=== PATIENT | male | born 1980 | race Hispanic/Latino ===

== ENCOUNTER 2024-01-12 19:59 | Emergency (ER) | payer OTHER ==
[~2024-01-12] VITALS: Ht 180.3 cm; Wt 101.2 kg
[~2024-01-12 19:59] MED LIST: AMLODIPINE BESYL5 MG PO; BENZONATATE100 MG PO; ONDANSETRON ODT4 MG PO; ULTRAM50 MG PO
[2024-01-12 20:41] LABS: BASOPHILS # (AUTO) 0.1 (0.0-0.1); BASOPHILS % 0.6 % (0.0-1.0); EOSINOPHILS # (AUTO) 0.3 (0.0-0.4); EOSINOPHILS % 3.9 % (0.0-6.0); HEMATOCRIT 43.8 % (38.2-49.6); HEMOGLOBIN 15.3 g/dL (14.0-18.0); LYMPHOCYTES # (AUTO) 2.8 (1.0-3.2); MEAN CORPUSCULAR HGB CONC 34.9 g/dL (31-35); MEAN CORPUSCULAR VOLUME 91.6 fL (81-99); MONOCYTES # (AUTO) 0.8 (0.2-0.8); MONOCYTES % 9.5 % (4.4-11.3); NEUTROPHILS # (AUTO) 4.5 (2.1-6.9); NEUTROPHILS % 52.3 % (38.7-80.0); PLATELET COUNT 282 x10e3/uL (140-360); RED BLOOD COUNT 4.78 x10e6/uL (4.3-5.7); RED CELL DISTRIBUTION WIDTH 12.5 % (11.7-14.4); WHITE BLOOD COUNT 8.61 x10e3/uL (4.8-10.8)
[2024-01-12 21:02] LABS: ALBUMIN 3.8 g/dL (3.5-5.0); ALBUMIN/GLOBULIN RATIO 0.8 (0.8-2.0); ANION GAP 18.2 mmol/L (8-16); BILIRUBIN,TOTAL 0.4 mg/dL (0.2-1.2); CALCIUM 9.3 mg/dL (8.4-10.2); CREATININE, SERUM 0.82 mg/dL (0.72-1.25); POTASSIUM 4.2 mmol/L (3.5-5.1); TOTAL PROTEIN 8.4 g/dL (6.5-8.1)
[2024-01-12 21:07] LABS: TROPONIN I 0.015 ng/mL (0-0.300)
[2024-01-12] MEDS: LIDOCAINE VISC 2% SOLN 15 ML UDC PO ONE (21:46)
[2024-01-12] MEDS: BELLADONNA ALK/PHENOBARBITAL 5 ML UDC PO SCH (21:47)
[2024-01-12] MEDS: MAGNESIUM/ALUMINUM/SIMETHICONE 30 ML UDC PO ONE (21:47)
[2024-01-12] MEDS: DONNATAL/LIDOCAINE/MAALOX 30 ML SUSP PO STA (21:47)
[2024-01-12 21:49] VITALS: PULSE 65; RESP 16; TEMP 97.9; O2SAT 100
[2024-01-12] MEDS ORDERED: LIDOCAINE VISC 2% SOLN 15 ML UDC ONE (21:49)
== END 2024-01-12 21:51 | disposition home or self-care (01) ==
LOC: ER 20:02
DX: R06.02 Shortness of breath (principal); R07.89 Other chest pain; I16.0 Hypertensive urgency; I10 Essential (primary) hypertension; M54.9 Dorsalgia, unspecified; G89.29 Other chronic pain; F41.9 Anxiety disorder, unspecified
CPT/HCPCS: 36415; 71045; 80053; 82550; 83690; 83880; 84484; 85025; 93005; 99284

== ENCOUNTER 2024-07-06 11:58 | Emergency (ER) | payer OTHER ==
[~2024-07-06] VITALS: Ht 180.3 cm; Wt 104.3 kg
[2024-07-06 12:15] VITALS: TEMP 98.7
[2024-07-06 13:15] LABS: STREPTOCOCCUS GRP A ANTIGEN POSITIVE (NEGATIVE)
[2024-07-06 13:19] LABS: INFLUENZA A AG NEGATIVE (NEGATIVE)
[2024-07-06 13:20] LABS: CORONAVIRUS COVID-19 AG NEGATIVE (NEGATIVE); INFLUENZA B AG NEGATIVE (NEGATIVE)
[2024-07-06] MEDS ORDERED: AMOX TR-K CLV1 EAC2 PO (14:25)
[2024-07-06 15:00] VITALS: PULSE 96; RESP 14; O2SAT 99
== END 2024-07-06 15:00 | disposition home or self-care (01) ==
LOC: ER 12:16
DX: R05.9 Cough, unspecified (principal); J02.0 Streptococcal pharyngitis; R51.9 Headache, unspecified; I10 Essential (primary) hypertension; F41.9 Anxiety disorder, unspecified; M54.9 Dorsalgia, unspecified; G89.29 Other chronic pain; Z11.52 Encounter for screening for COVID-19
CPT/HCPCS: 83518; 99283

== ENCOUNTER 2024-10-03 23:46 | Emergency (ER) | payer OTHER ==
[~2024-10-03] VITALS: Ht 180.3 cm; Wt 104.3 kg
[~2024-10-03 23:46] MED LIST changes: +AMOX TR-K CLV1 EAC2 PO
[2024-10-03 23:49] VITALS: TEMP 98.7
[2024-10-04 01:05] VITALS: PULSE 61; RESP 16; O2SAT 97
[2024-10-04 01:10] LABS: CORONAVIRUS COVID-19 AG NEGATIVE (NEGATIVE)
[2024-10-04] MEDS ORDERED: AZITHROMYCIN250 MG PO (01:19)
[2024-10-04] MEDS ORDERED: MEDROL4 M2 PO (01:19)
[2024-10-04 01:31] VITALS: TEMP 98.2
== END 2024-10-04 01:30 | disposition home or self-care (01) ==
LOC: ER 23:55
DX: R42 Dizziness and giddiness (principal); J06.9 Acute upper respiratory infection, unspecified; J40 Bronchitis, not specified as acute or chronic; I10 Essential (primary) hypertension; F41.9 Anxiety disorder, unspecified; M54.9 Dorsalgia, unspecified; G89.29 Other chronic pain; Z11.52 Encounter for screening for COVID-19
CPT/HCPCS: 71045; 99283